=== PATIENT | female | born 1965 | race Caucasian/White ===

== ENCOUNTER 2025-09-17 08:52 | Emergency (ER) | payer BC ==
[~2025-09-17] VITALS: Ht 172.7 cm; Wt 90.7 kg
[2025-09-17 08:54] VITALS: BP 147/78
[2025-09-17] MEDS ORDERED: LAMO100T2 PO (09:25)
[2025-09-17] MEDS ORDERED: [UNRECOGNIZED DRUG - CODE] PO (09:25)
[2025-09-17] MEDS ORDERED: ESCI20TA PO (09:25)
[2025-09-17] MEDS ORDERED: LEVE1000 PO (09:25)
[2025-09-17] MEDS ORDERED: ROSU40TA PO (09:25)
[2025-09-17] MEDS ORDERED: ONDANSETRON ODT 4 MG TAB.RAPDIS ONE (09:36)
[2025-09-17] MEDS: ONDANSETRON ODT 4 MG TAB.RAPDIS SL ONE (09:37)
[2025-09-17] MEDS ORDERED: ONDA-243 PO (11:26)
[2025-09-17 11:51] VITALS: BP 147/78; TEMP 97.6; O2SAT 96
== END 2025-09-17 11:52 | disposition home or self-care (01) ==
LOC: ER 08:52
DX: S01.01XA Laceration without foreign body of scalp, initial encounter (principal); F17.200 Nicotine dependence, unspecified, uncomplicated; E78.00 Pure hypercholesterolemia, unspecified; F41.9 Anxiety disorder, unspecified; G40.909 Epilepsy, unspecified, not intractable, without status epilepticus; Z79.899 Other long term (current) drug therapy; W01.0XXA Fall on same level from slipping, tripping and stumbling without subsequent striking against object, initial encounter; Y93.89 Activity, other specified; Y92.89 Other specified places as the place of occurrence of the external cause; Y99.9 Unspecified external cause status
CPT/HCPCS: 70450; A4606; A4663; Q0162